=== PATIENT | female | born 1960 | race Caucasian/White ===

== ENCOUNTER 2017-01-25 14:06 | Outpatient (CLI) | payer BC ==
--- NOTE | 2017-01-25 14:57 | Diagnostic Imaging Report ---
Indication: Dyspnea Comparison: 09/23/11 2 views of the chest obtained. Findings: Cardiomediastinal silhouette and pulmonary vascularity are within normal limits for age. Cervical fusion plate noted. The diaphragmatic contour is smooth and costophrenic angles are sharp. No pleural effusions are identified. The bones are unremarkable. Impression: No acute disease
--- NOTE | 2017-01-26 01:45 | Pre-op HX & Phy Repo 2 SIG ---
DATE OF ADMISSION: 01/25/2017 HISTORY OF PRESENT ILLNESS: The patient is having right shoulder rotator cuff surgery on 02/01/[address] Mendez. The patient is a very pleasant 56-year-old female who presents to my office for preoperative clearance for her right shoulder rotator cuff surgery. She denies any fevers or chills. She denies any chest pain or shortness of breath. Denies any cough. Denies any abdominal pain. No urinary symptoms. PAST MEDICAL HISTORY: Include a history of breast cancer diagnosed in May 2012 for which she had surgery and radiation that same year. She also had a lumpectomy. The patient was given medications to suppress this, but none with chemo. She has had a history of hysterectomy in 2006. She has a history of reactive asthma, allergic rhinitis, history of IBS, history of lymphocytic colitis many years ago, history of depression and anxiety, history of migraine headaches, history of left shoulder surgery in 2007 and 2008, history of multiple neck surgeries in the past, history of anterior cruciate ligament replacement x2 in the left knee, history of bowel obstruction in 2010 after pelvic surgery that she had, history of hernia surgery on her belly button, which was . Right shoulder surgery in 2009, history of kidney stones in May 2016, history of gallstones in the past, history of hyperlipidemia, and history of pleurisy in the past. MEDICATIONS: Medications she is on include Lipitor 40 mg daily, Prozac 40 mg daily, Wellbutrin 300 mg XL daily, Prilosec 40 mg daily, Fentanyl patch 25 mg q.48.h., and Mull[place] p.r.n. pain. She is on Faslodex injections monthly from her oncologist for the breast cancer. ALLERGIES: Allergic to sulfa, which gives her migraine. FAMILY HISTORY: No history of cancers on the female side. Only, father had bladder cancer. SOCIAL HISTORY: She does not smoke. Does not drink any alcohol. She drinks one cup of coffee a day. REVIEW OF SYSTEMS: A 12-point review of systems was reviewed and negative except for above. PHYSICAL EXAMINATION: GENERAL: She is well developed and well nourished. Currently, in no apparent distress. VITAL SIGNS: Blood pressure is 130/80, pulse 70, and respirations of 18. She is afebrile. HEENT: Head, normocephalic and atraumatic. Pupils are equal and reactive to light. Extraocular muscles intact. Eyes are anicteric. Throat, mucous membranes are moist. On her upper lip, she had a sunburn . NECK: Supple. No jugular venous distention. No bruits. LUNGS: Clear. HEART: Regular rate and rhythm without murmurs, rubs, or gallops. ABDOMEN: Soft. Positive bowel sounds. Nondistended. Nontender. EXTREMITIES: No clubbing, cyanosis, or edema. Shoulder exam is per Dr. Mendez. NEUROLOGIC: Nonfocal. ASSESSMENT AND PLAN: The patient is a pleasant 56-year-old female who presents to my office for preoperative clearance for her right shoulder rotator cuff surgery. Preoperative laboratories including CBC, CMP, PT, PTT, and urinalysis have been drawn. The patient will be sent for chest x-ray as well as an EKG. The patient was told not to take any aspirin products a week prior to the surgery. Pending her laboratory results, she will be cleared for the proposed procedure. Ar Ocasio M.D. DR: ZACH JOB#: [id number] CC: Ray Mendez M.D.; Fax#: [phone]
== END 2017-01-25 16:06 | disposition home or self-care (01) ==
LOC: RAD 14:06
DX: R06.00 Dyspnea, unspecified (principal); I10 Essential (primary) hypertension
CPT/HCPCS: 71020

== ENCOUNTER 2017-02-01 07:03 | Day surgery (SDC) | payer BC ==
--- NOTE | 2017-01-26 01:45 | Pre-op HX & Phy Repo 2 SIG ---
DATE OF ADMISSION: 01/25/2017 HISTORY OF PRESENT ILLNESS: The patient is having right shoulder rotator cuff surgery on 02/01/[address] Mendez. The patient is a very pleasant 56-year-old female who presents to my office for preoperative clearance for her right shoulder rotator cuff surgery. She denies any fevers or chills. She denies any chest pain or shortness of breath. Denies any cough. Denies any abdominal pain. No urinary symptoms. PAST MEDICAL HISTORY: Include a history of breast cancer diagnosed in May 2012 for which she had surgery and radiation that same year. She also had a lumpectomy. The patient was given medications to suppress this, but none with chemo. She has had a history of hysterectomy in 2006. She has a history of reactive asthma, allergic rhinitis, history of IBS, history of lymphocytic colitis many years ago, history of depression and anxiety, history of migraine headaches, history of left shoulder surgery in 2007 and 2008, history of multiple neck surgeries in the past, history of anterior cruciate ligament replacement x2 in the left knee, history of bowel obstruction in 2010 after pelvic surgery that she had, history of hernia surgery on her belly button, which was . Right shoulder surgery in 2009, history of kidney stones in May 2016, history of gallstones in the past, history of hyperlipidemia, and history of pleurisy in the past. MEDICATIONS: Medications she is on include Lipitor 40 mg daily, Prozac 40 mg daily, Wellbutrin 300 mg XL daily, Prilosec 40 mg daily, Fentanyl patch 25 mg q.48.h., and [place] p.r.n. pain. She is on Faslodex injections monthly from her oncologist for the breast cancer. ALLERGIES: Allergic to sulfa, which gives her migraine. FAMILY HISTORY: No history of cancers on the female side. Only, father had bladder cancer. SOCIAL HISTORY: She does not smoke. Does not drink any alcohol. She drinks one cup of coffee a day. REVIEW OF SYSTEMS: A 12-point review of systems was reviewed and negative except for above. PHYSICAL EXAMINATION: GENERAL: She is well developed and well nourished. Currently, in no apparent distress. VITAL SIGNS: Blood pressure is 130/80, pulse 70, and respirations of 18. She is afebrile. HEENT: Head, normocephalic and atraumatic. Pupils are equal and reactive to light. Extraocular muscles intact. Eyes are anicteric. Throat, mucous membranes are moist. On her upper lip, she had a sunburn . NECK: Supple. No jugular venous distention. No bruits. LUNGS: Clear. HEART: Regular rate and rhythm without murmurs, rubs, or gallops. ABDOMEN: Soft. Positive bowel sounds. Nondistended. Nontender. EXTREMITIES: No clubbing, cyanosis, or edema. Shoulder exam is per Dr. Mendez. NEUROLOGIC: Nonfocal. ASSESSMENT AND PLAN: The patient is a pleasant 56-year-old female who presents to my office for preoperative clearance for her right shoulder rotator cuff surgery. Preoperative laboratories including CBC, CMP, PT, PTT, and urinalysis have been drawn. The patient will be sent for chest x-ray as well as an EKG. The patient was told not to take any aspirin products a week prior to the surgery. Pending her laboratory results, she will be cleared for the proposed procedure. Ar Ocasio M.D. DR: ZACH JOB#: [id number] CC: Ray Mendez M.D.; Fax#: [phone]
--- NOTE | 2017-01-31 13:12 | Pre-Procedure Note/Attestation ---
Pre-Procedure Note/Attestation Complete Prior to Procedure Planned Procedure: right Procedure Narrative: Rt shoulder revision arthroscopy, SAD, RTC repair Indications for Procedure Pre-Operative Diagnosis: Rt shoulder RTC tear Attestation I attest that I discussed the nature of the procedure; its benefits; risks and complications; and alternatives (and the risks and benefits of such alternatives ), prior to the procedure, with the patient (or the patient's legal inside technical sales representative). I attest that, if there was a reasonable possibility of needing a blood transfusion, the patient (or the patient's legal inside technical sales representative) was given the [facility] standardized written summary, pursuant to the Anil Rajesh Blood Safety Act ([place] Health and Safety Code # 1645, as amended). I attest that I re-evaluated the patient just prior to the surgery and that there has been no change in the patient's H&P, except as documented below: NONE ANTIONETTE GIMENEZ Jan 31, 2017 13:12
[2017-02-01] VITALS (13 sets, daily range): BP systolic 103–138; BP diastolic 59–79
[~2017-02-01] VITALS: Ht 165.1 cm; Wt 63.5 kg
[~2017-02-01 07:03] MED LIST: ceFAZolin 1gm in D5W 55ml IVP ONE; oxyCONTIN 20mg tab ORAL ONE
[2017-02-01] MEDS ORDERED: COLACE100 MG ORAL (07:50)
[2017-02-01] MEDS ORDERED: AMBIEN10 MG ORAL (07:50)
[2017-02-01] MEDS ORDERED: [UNRECOGNIZED DRUG - OTHER] ORAL (07:50)
[2017-02-01] MEDS ORDERED: LIPITOR40 MG ORAL (07:50)
[2017-02-01] MEDS ORDERED: WELLBUTRIN XL150 M1 ORAL (07:50)
[2017-02-01] MEDS ORDERED: PROZAC20 MG ORAL (07:50)
[2017-02-01] MEDS ORDERED: NORCO 10-325 T1 EACH ORAL (07:50)
[2017-02-01] MEDS ORDERED: PRILOSEC OTC20 MG ORAL (07:50)
[2017-02-01] MEDS ORDERED: VITAMIN D1000 UNI1 ORAL (07:50)
[2017-02-01] MEDS ORDERED: FENTANYL1 EAC5 TD (07:50)
[2017-02-01] MEDS ORDERED: FASLODEX250 MG/5 M IM (07:53)
[2017-02-01] MEDS ORDERED: Ropivacaine 5mg/ml Vial 20ml INJ ONE (07:57)
[2017-02-01] MEDS ORDERED: Bupivacaine w/Epi 0.5% 30ml Vial INJ ONE (07:57)
[2017-02-01] MEDS ORDERED: NS Irrig 4000ml IRRIG ONE ×2 (09:00→10:16)
[2017-02-01] MEDS ORDERED: LR 1000ml ONE (09:00)
[2017-02-01] MEDS ORDERED: Propofol 10mg/ml 20ml IV ONE (09:00)
[2017-02-01] MEDS ORDERED: Midazolam 2mg/2ml Inj ONE (09:00)
[2017-02-01] MEDS ORDERED: HYDROmorphone 1mg/ml Carpuject SUBQ PRN (10:00)
[2017-02-01] MEDS ORDERED: D5 1/2NS 1,000 ML IV SCH (10:00)
[2017-02-01] MEDS ORDERED: Tylenol #3 tab (300mg/30mg) ORAL PRN (10:00)
[2017-02-01] MEDS ORDERED: Norco 5mg/325mg tab ORAL PRN (10:00)
--- NOTE | 2017-02-01 10:12 | Anethesia Preoperative Eval ---
Anesthesia Pre-op PMH/ROS General Date of Evaluation: Feb 01, 2017 Time of Evaluation: 08:00 Anesthesiologist: mehdi ASA Score: ASA 3 Mallampati Score Class I : Soft palate, uvula, fauces, pillars visible Class II: Soft palate, uvula, fauces visible Class III: Soft palate, base of uvula visible Class IV: Only hard plate visible Mallampati Classification: Class I Surgeon: Tete Diagnosis: rotator cuff tear Surgical Procedure: rotator cuff repar Anesthesia History: none Family History: no anesthesia problems Allergies: Coded Allergies: ADHESIVE TAPE (Verified Allergy, Severe, 01/31/17) WELTS AND SKIN IRRITATION SULFONYLUREAS (Verified Allergy, Severe, 02/01/17) Headache Anesthesia Pre-op Phys. Exam Physician Exam Last Vital Signs Date Time Temp Pulse Resp B/P Pulse Ox O2 Delivery O2 Flow Rate FiO2 02/01/17 07:59 97.4 80 18 138/75 99 Room Air Chana Cosme MD Feb 01, 2017 10:12
[2017-02-01] MEDS ORDERED: fentaNYL 100 mcg/2 mL IV PRN (10:15)
[2017-02-01] MEDS ORDERED: Ketorolac 30mg Inj IV PRN (10:15)
--- NOTE | 2017-02-01 10:55 | Brief Operative Note ---
Immediate Post Operative Note Operative Note Chief Complaint: rt shoulder pain Pre-op Diagnosis: rt shoulder rtc tear Procedure: rt shoulder scope, sad, rtc repair Post-op Diagnosis: same as pre-op Findings: consistent w/pre-op dx studies Surgeon: md raymond Stock Shaper: ariella louie Anesthesiologist: md alyce Anesthesia: general Specimen: none Complications: none Condition: stable Estimated Blood Loss: minimal Drains: none Implant(s) used?: Yes - biomet EVONNE LOUIE Feb 01, 2017 10:55
--- NOTE | 2017-02-01 11:10 | Immediate Post-Op Evaluation ---
Immediate Post-Op Evalulation Immediate Post-Op Evalulation Procedure: shoulder arthroscopy Date of Evaluation: Feb 01, 2017 Time of Evaluation: 11:10 Nausea: No Vomiting: No Hydration Status: adequate Given Within 1 Hr of Incision: Yes Chana Cosme MD Feb 01, 2017 11:10
--- NOTE | 2017-02-01 16:45 | Operative Note - Dictated ---
DATE OF OPERATION: 02/01/2017 PREOP DX: 1. Right shoulder arthritis. 2. Right shoulder rotator cuff tear. POSTOP DX: 1. Right shoulder extensive glenohumeral arthritis with grade 4 chondromalacia and total loss of cartilage in the central portion of the humeral head measuring 1.5 x 2 cm as well as corresponding diffuse glenoid chondral loss most prominent with grade 4 chondromalacia on the superior as well as the central portion of the glenoid. 2. A scar tissue in the rotator interval as well as degenerative labral tearing superiorly. 3. Right shoulder subacromial impingement with bone spur. 4. Right shoulder bursal sided rotator cuff tear measuring 1 cm. 5. Multiple loose chondral fragments in the glenohumeral joint from arthritis. PROCEDURES: 1. Right shoulder arthroscopy and extensive intra-articular shaving. 2. Right shoulder resection of loose chondral fragments from the glenohumeral joint. 3. Right shoulder debridement of the degenerative labral tearing. 4. Right shoulder subacromial bursoscopy, bursectomy, and subacromial decompression. 5. Right shoulder arthroscopic rotator cuff repair using single Biomet 2.9 mm juggernaut anchor. SURGEON: Ray Mendez M.D. HRIS SPECIALIST: Maia Motta PA-C. Tooler was present during the actual operative portion of the case and was important and essential part of the operation. During the operation, the assistant director of plant operations held and operated the arthroscopic camera for visualization, assisted by manipulating the arm to help with visualization, and helped with essential parts of the repair process as necessary such as operating surgical instruments under surgeon supervision, suture management, and wound closures. ANESTHESIOLOGIST: Dr. Cosme. ANESTHESIA: General LMA anesthesia combined with interscalene block for postoperative pain management. EBL: Minimal. COMPLICATIONS: None. SURGICAL INDICATION: Patient is a 56-year-old female, who sustained the above injury to her shoulder. The patient was treated non-operative initially, but this did not alleviate the patients symptoms. Therefore, after discussing all non-surgical and surgical options, and discussing all foreseeable risk and benefits of surgery, the patient opted for surgical treatment as described above. PATIENT POSITIONING: Patient was brought to the operating room table and was placed on the operating room table. All pressure points were well padded. General anesthesia was induced and patient was then placed in the lateral decubitus position. All pressure points were well padded again and an axillary roll was placed. Patient shoulder was then prepped and draped in the usual sterile fashion. Time out was performed and the appropriate preoperative antibiotic was given by the anesthesiologist. EXAMINATION OF SHOULDER UNDER ANESTHESIA: The shoulder was examined under anesthesia with all muscles well relaxed. The shoulder was forward flexed, abducted and was placed through full range of external and internal rotation. The anterior, posterior, and inferior stability of the shoulder was checked. The exam revealed no evidence of adhesive capsulitis and no evidence of instability. PORTAL PLACEMENT: The posterior portal was established 2 cm inferior and 1 cm medial to the edge of the posterior acromion. 1 cm skin incision was made using an eleven blade and using the blunt obturator, the cannula was gently placed through the capsule. The midglenoid portal was established just lateral to the coracoid process under direct visualization. Direction of the cannula was first established using a spinal needle, and subsequently, the cannula was placed through the capsule with a blunt obturator. DIAGNOSTIC ARTHROSCOPY: The biceps tendon was probed and pulled through the joint for visualization. It appeared normal. The biceps anchor was palpated with a probe and was visualized. There was some degenerative labral tearing anteriorly as well as posteriorly. The posterior labrum and axillary recess was visualized. There was some degenerative labral tearing and hyperemia in the axillary fold. There were some bone spurs and some loose fragments in the area. There was diffuse glenoid chondral damage mostly in the superior portion, which was grade 4 chondromalacia. However, there was a central 1 x 1 cm chondral damage in the central portion of the glenoid as well. The most anterior inferior and posterior inferior was spared and there was some chondral articular cartilage remaining in that area. The articular surface of the rotator cuff was visualized and probed next. There was no evidence of articular sided rotator cuff tear extending from the supraspinatus back to the posterior cuff. The Humeral head articular surface was then visualized. There was extensive chondral damage on the humeral head especially centrally, which measured 1.5 x 2 cm. This was grade 4 chondromalacia. Next, the anterior labrum, middle glenohumeral ligament, subscapularis tendon, and the anterior inferior glenohumeral ligament were evaluated. The subscapularis and the ligaments were intact, however, there was extensive scar tissue in the rotator interval. At this point, the scope was moved to the midglenoid portal and the posterior structures including the posterior labrum, posterior capsule and posterior cuff were visualized. There was some degeneration of posterior labrum. The subscapularis recess was devoid of any loose fragments. The middle and anterior inferior glenohumeral ligament was visualized. These structures were completely normal. OPERATIVE DEBRIDEMENTS AND REPAIR: Care was given to all partial thickness tears and frayed structures in the shoulder joint. The frayed rotator cuff and labrum was debrided using a shaver initially through the anterior portal and subsequently through the posterior portal to complete the debridement. This allowed for smooth debridement of all affected structures and all loose fragments were removed. DIAGNOSTIC BURSOSCOPY AND SUBACROMIAL DECOMPRESSION: The subacromion bursa was entered from the posterior portal. The anterior portal was established under the CA ligament using a switching stick. Subacromial arthroscopy was initiated. There was extensive bursitis and thickened and inflamed bursa tissue present. The CA ligament appeared to be scuffed and frayed. The shaver was placed through the anterior cannula and debridement of the hypertrophic bursa tissue was accomplished. Once visualization was adequate, a lateral portal was established using a blunt trochar in the mid portion of the acromion bone in the anterior-posterior direction and approximately 2 cm lateral to the lateral edge of the acromion. Using combination of shaver and electrocautery the CA ligament was released from the undersurface of the acromion and a complete bursectomy was accomplished. At this point, a subacromial decompression was performed using a mayo initially taking off 5-8 mm of the anterolateral edge of the acromion from the lateral portal and viewing from the posterior portal. Then the lateral border of the undersurface of the acromion was decompressed to the same dept as the anterolateral edge. A posterior trough was then created in the acromion in line with the posterior edge of the clavicle. At this point, the scope was placed in the lateral portal and the subacromial decompression was performed from the posterior portal decompressing the undersurface of the acromion to dept of 5-8 mm. The decompression was performed anterior to the previously marked trough all the way medially to the level of the AC joint. At all times, care was given not to take off too much bone in order to avoid risk of fracture of the acromion. An excellent subacromial decompression was performed in this fashion. At this point, the bursal side of the rotator cuff was examined. All the bursa over the rotator cuff was removed and the rotator cuff was examined with a probe. The arm was placed into external rotation, neutral, and then internal rotation and there was evidence of a bursal-sided rotator cuff measuring 1 cm without retraction. The scope was then placed in the posterior portal and the subacromial decompression was rechecked to assure there is no area of bone spur that would be still impinging onto the rotator cuff. The scope was placed in the lateral portal and the rotator cuff was visualized. The rotator cuff revealed a bursal-sided 1 cm non-retracted rotator cuff tear. The rotator cuff foot print adjacent to the articular cartilage of the humeral head was identified. This area was debrided initially using aidan and subsequently using mayo to provide adequate bleeding bony surface to accept the rotator cuff tendon. Attention was given to repair the rotator cuff with as little tension as possible. At this point, an arthroscopic punch was used to create holes for suture anchor placement at the medial edge of the foot print through separate stab wound incisions and an arthroscopic tap was used to prepare the holes. One Biomet 2.9 mm juggernaut anchor double loaded with two #2 non-absorbable strong sutures was placed in previously prepared holes. Using standard arthroscopic suture passing instruments, the sutures were passed through the edge of rotator cuff with minimal trauma to the cuff tissue. Care was given to obtain large enough bites of the rotator cuff for the sutures to hold well. Once the sutures were passed through the cuff, the repair was secured onto the rotator cuff foot print using SMC sliding knots followed by 3 alternating-post half hitches. This allowed tension free repair of the rotator cuff with excellent stability and water tight closure. The cuff repair security was assured by palpating the repair with a probe. CONDITION AT DISCHARGE FROM OPERATING ROOM: The skin was re-approximated and sterile dressing and sling were applied. All lap counts and instrument counts were correct. Patient tolerated the procedure well without complications and was taken to the recovery room in stable conditions. Ray Mendez M.D. DR: KARLY JOB#: [id number] CC:
--- NOTE | 2017-02-03 09:21 | 48 Hour Post Anesthesia Eval ---
Post Anesthesia Evaluation Procedure: shoulder arthroscopy Date of Evaluation: Feb 03, 2017 Time of Evaluation: 09:21 Nausea: No Vomiting: No Mental Status/LOC: patient returned to baseline Chana Cosme MD Feb 03, 2017 09:21
== END 2017-02-01 13:35 | disposition home or self-care (01) ==
LOC: SUR 07:03
DX: M75.121 Complete rotator cuff tear or rupture of right shoulder, not specified as traumatic (principal); M94.211 Chondromalacia, right shoulder; M19.011 Primary osteoarthritis, right shoulder; J45.909 Unspecified asthma, uncomplicated; F32.9 Major depressive disorder, single episode, unspecified; F41.9 Anxiety disorder, unspecified; G43.909 Migraine, unspecified, not intractable, without status migrainosus; Z87.19 Personal history of other diseases of the digestive system; Z85.3 Personal history of malignant neoplasm of breast; Z90.710 Acquired absence of both cervix and uterus; Z87.442 Personal history of urinary calculi; Z88.2 Allergy status to sulfonamides
CPT/HCPCS: 29826; 29827; J0690; J1885; J2250; J2704; J3010; J7120; 94003; 94150; C1713